=== PATIENT | female | born 1955 | race Caucasian/White ===

== ENCOUNTER → 2019-09-26 | Outpatient (CLI) | payer OTHER ==
[2019-08-14 14:43] VITALS: BP 144/72
[~2019-09-26] MED LIST: ANAS1TAB47 PO; CALC-98 PO; CHOL10003 PO; INSU100V13 SQ; INSU100V31 SQ; LISI-334 PO; OXYC5TAB4 PO; RED600TA PO; TRAM50TA PO; UBID100C26 PO
--- NOTE | 2019-09-26 18:32 | RAD ---
EXAM: PET/CT SCAN INDICATION: History of left breast cancer, restaging. Sternal mass. COMPARISON: None available PET/CT SCAN TECHNIQUE: Approximately 60 minutes after the intravenous administration of 15.1 millicuries of F-18 fluorodeoxyglucose (FDG), PET imaging of the body from the base of the skull through the mid thighs was performed. Reconstruction in all 3 planes were performed. The patient's serum glucose level at the time of the F-18 FDG administration was 162 mg/dL. A noncontrast CT scan was obtained for attenuation correction and anatomic localization purposes only and is not considered a diagnostic CT scan. PQRS compliance Statement One or more of the following individualized dose reduction techniques were utilized for this study: 1. Automated exposure control 2. Adjustment of the mA and/or kV according to patient size 3. Use of iterative reconstruction technique FINDINGS: HEAD AND NECK: No abnormal radiotracer uptake in the head and neck. No lymphadenopathy. Coarse calcification seen in the right thyroid lobe. CHEST: There is soft tissue thickening in the left axilla and subpectoral region with mild increased FDG uptake with SUV max 3.47. No FDG avid lymphadenopathy. Heart is normal in size. There is atelectasis and motion in the lungs. No pleural effusion. ABDOMEN AND PELVIS: No abnormal radiotracer uptake. No lymphadenopathy. Postcholecystectomy. There is a small ventral hernia containing fat and loops of small bowel. MUSCULOSKELETAL: There is increased FDG uptake in the left trapezius and rotator cuff muscles with SUV max up to 3.54. Sclerotic lesion in the left half of the sternum has SUV max 2.71. A 1.6 x 1.2 cm sclerotic lesion in the medial left femoral neck has SUV max 1.8, similar to background. There is a 1.8 cm sclerotic lesion in the right superior pubic ramus, difficult to measure FDG uptake due to artifact from adjacent bladder uptake. There is multilevel degenerative disc disease in the spine. Age-indeterminate L4 compression fracture with mild height loss. IMPRESSION: 1. Soft tissue thickening in the left axilla and subpectoral region with mildly increased FDG uptake, SUV max 3.47. Mild similar increased FDG uptake in the left trapezius and rotator cuff muscles. Findings are likely postsurgical/related to left breast reconstruction. 2. Mild FDG uptake in the sclerotic lesion in the left half of the sternum, SUV max 2.71. 3. There are several sclerotic lesions in the pelvis involving the right superior pubic ramus and left femoral neck. The left femoral neck lesion has no FDG uptake above background. The right superior pubic ramus lesion is indeterminate due to artifact from FDG uptake in the bladder. Electronically signed by: Haley John MD (09/26/2019 6:29 PM) [id number]
== END | disposition home or self-care (01) ==
LOC: PETSC 06:58
PROVIDERS: ATTEND Internal Medicine Hematology & Oncology
DX: C50.112 Malignant neoplasm of central portion of left female breast (principal); M51.36 Other intervertebral disc degeneration, lumbar region
CPT/HCPCS: 78815; A9552

== ENCOUNTER → 2019-10-02 | Outpatient (CLI) | payer OTHER ==
[2019-09-30 13:44] VITALS: BP 146/74
--- NOTE | 2019-10-02 12:46 | RAD ---
Examination: Ultrasound left upper extremity venous duplex HISTORY: History of COPD left upper abdomen pain COMPARISON: None available. TECHNIQUE: Grayscale, color Doppler 2-D, spectral waveform analysis of the left upper extremity venous system were performed FINDINGS: There is nonoccluding echogenicity identified in the proximal and distal brachial vein. There is a superficial vein thrombosis identified in the cephalic vein and mid and proximal basilic vein. The radial, ulnar veins could not be identified. The visualized internal jugular vein, subclavian vein appear patent. The axillary vein is not well-visualized. IMPRESSION: 1. Probable deep venous thrombosis left brachial vein. 2. Superficial vein thrombosis identified in the basilic vein. Ordering physician's office nurse was informed at time of dictation. Electronically signed by: Layo Marie MD (10/02/2019 12:44 PM) [id number]
== END | disposition home or self-care (01) ==
LOC: US 10:16
PROVIDERS: ATTEND Physician Assistant
DX: I82.812 Embolism and thrombosis of superficial veins of left lower extremity (principal); M79.89 Other specified soft tissue disorders; C50.112 Malignant neoplasm of central portion of left female breast
CPT/HCPCS: 93971

== ENCOUNTER → 2019-10-29 | Outpatient (CLI) | payer OTHER ==
[2019-09-30 13:44] VITALS: BP 146/74
[2019-10-29 09:12] LABS: BASO # 0.1 x10^3/uL (0.0-0.2); BASO % 1 % (0-3); EOS # 0.1 x10^3/uL (0.0-0.7); EOS % 1 % (0-3); HEMATOCRIT 30.7 % (36.0-47.0); HEMOGLOBIN 10.8 g/dL (12.0-15.5); LYMPH # 1.3 x10^3/uL (1.0-4.8); LYMPH % 20 % (24-48); MEAN CORPUSCULAR HEMOGLOBIN 33 pg (25-35); MEAN CORPUSCULAR HGB CONC 35 g/dL (31-37); MEAN CORPUSCULAR VOLUME 95 fL (79-100); MONO # 0.7 x10^3/uL (0.0-1.1); MONO % 12 % (0-9); NEUT # 4.2 x10^3/uL (1.8-7.7); NEUT % 66 % (31-73); PLATELET COUNT 368 x10^3/uL (140-400); RED BLOOD COUNT 3.25 x10^6/uL (3.50-5.40); RED CELL DISTRIBUTION WIDTH 19.9 % (11.5-14.5); WHITE BLOOD COUNT 6.4 x10^3/uL (4.0-11.0)
[2019-10-29 09:54] LABS: CALCIUM 9.3 mg/dL (8.5-10.1); CREATININE 1.3 mg/dL (0.6-1.0); GFR 41.2; POTASSIUM 4.1 mmol/L (3.5-5.1)
[2019-10-29 09:59] LABS: ALBUMIN 3.3 g/dL (3.4-5.0); DIRECT BILIRUBIN 0.1 mg/dL (0.0-0.2); TOTAL BILIRUBIN 0.3 mg/dL (0.2-1.0); TOTAL PROTEIN 7.4 g/dL (6.4-8.2)
== END | disposition home or self-care (01) ==
LOC: ONCLAB 08:58
PROVIDERS: ATTEND Internal Medicine Hematology & Oncology
DX: C50.112 Malignant neoplasm of central portion of left female breast (principal)
CPT/HCPCS: 36415; 80048; 80076; 83615; 85025; 86300

== ENCOUNTER → 2019-11-28 | Outpatient (CLI) | payer OTHER ==
[2019-09-30 13:44] VITALS: BP 146/74
--- NOTE | 2019-11-28 15:35 | RAD ---
EXAM: Left upper extremity venous Doppler. HISTORY: Left upper extremity pain/swelling. History of deep venous thrombosis, lymphedema. COMPARISON: 10/02/2019. FINDINGS: Grayscale and Doppler analysis of the left upper extremity deep venous system was performed with graded compression and augmentation. The internal jugular, subclavian, axillary, brachial, basilic, cephalic, radial and ulnar veins were assessed. The previously noted left cephalic vein thrombus has resolved. The left brachial vein is not well seen. It may be atretic, or filled with isoechoic for chronic thrombus. IMPRESSION: 1. The basilic vein is either atretic or filled with chronic isoechoic thrombus. 2. Resolution of the previous noted cephalic vein thrombus. Electronically signed by: Brant Coronado MD (11/28/2019 3:32 PM) [id number]
== END | disposition home or self-care (01) ==
LOC: US 14:09
PROVIDERS: ATTEND Internal Medicine Hematology & Oncology
DX: I82.602 Acute embolism and thrombosis of unspecified veins of left upper extremity (principal); I97.2 Postmastectomy lymphedema syndrome; Z86.718 Personal history of other venous thrombosis and embolism
CPT/HCPCS: 93971

== ENCOUNTER → 2019-12-22 | Outpatient (CLI) | payer OTHER ==
[2019-09-30 13:44] VITALS: BP 146/74
[~2019-12-22] MED LIST changes: +IOHEXOL 240 MG/ML 50ML VIAL. PO ONE
--- NOTE | 2019-12-22 12:53 | RAD ---
EXAM: CT OF THE CHEST, ABDOMEN AND PELVIS WITHOUT CONTRAST. HISTORY: Metastatic breast cancer. TECHNIQUE: Computed tomography of the chest, abdomen and pelvis was performed without intravenous contrast. One or more of the following individualized dose reduction techniques were utilized for this examination: 1. Automated exposure control. 2. Adjustment of the mA and/or kV according to patient size. 3. Use of iterative reconstruction technique. COMPARISON: 09/26/2019. FINDINGS: Bone windows reveal multiple small sclerotic lesions consistent with metastatic disease. The largest is within the left aspect of the sternal body. One in the left femoral neck measures 2.6 x 1.3 cm. Small lesions are seen within multiple bilateral ribs, multiple thoracic and lumbar vertebral bodies, and scattered throughout the pelvis. There is a mild central superior plate compression fracture at L4, not clearly associated with the lesion. The degree of sclerosis of most lesions appears to have increased since the prior study. Infiltrative soft tissue density is again noted between the left pectoralis major and minor muscles, extending about the left brachial plexus and left axillary dissection clips. There is subcutaneous edema within the visualized portions of the left upper extremity. Bilateral mastectomy changes are noted. There are no pathologically enlarged mediastinal or discrete axillary lymph nodes. There is a small left pleural effusion. No clear pleural masses are identified. The heart is not enlarged. Scarring anteriorly in the left upper lobe is likely secondary to postradiation change. A nodule with adjacent scarring in the right middle lobe measures 8 mm and is not clearly changed. Diffuse hepatic steatosis is moderate to severe. Sensitivity for hepatic lesions is decreased without contrast. The gallbladder is surgically absent. A 12 mm nodule in the left adrenal gland is unchanged. The right adrenal gland is stable. The pancreas, spleen and right kidney are unremarkable. A 4 mm calculus is noted in the left renal lower pole. The uterus is surgically absent. The appendix is not inflamed. There is no small bowel obstruction. A moderate supraumbilical hernia contains a nonobstructed small bowel loop. IMPRESSION: 1. Sclerotic osseous lesions throughout the visualized skeleton have increased since 09/24/2019. This may reflect progression of disease or increased sclerosis in the setting of a healing response. Correlate with other clinical data. 2. Stable infiltrative soft tissue within the left axilla and pectoral region may reflect posttreatment fibrosis or residual/recurrent disease. 3. Small left pleural effusion. 4. Stable 8 mm right middle lobe nodule. 5. Moderate to severe diffuse hepatic steatosis. 6. Moderate supraumbilical hernia containing nonobstructed small bowel loops. 7. 4 mm left renal calculus. Electronically signed by: Brant Coronado MD (12/22/2019 12:50 PM) [id number]
--- NOTE | 2019-12-22 13:52 | RAD ---
EXAM: BONE SCINTIGRAPHY. HISTORY: Metastatic breast cancer. TECHNIQUE: Following the intravenous injection of 25 mCi of Tc-99m labeled methylene diphosphonate (MDP), delayed images of the whole body were performed in anterior and posterior projections. COMPARISON: CT 12/22/2019. FINDINGS: A focus of increased uptake along the the left para midline frontal bone is consistent with a metastasis. Additional foci are seen along the ribs bilaterally. The largest focus is noted along the sternal body. Additional small lesions are seen within the pelvis bilaterally, the lower thoracic spine, the left intertrochanteric femur, and the right mid femoral diaphysis. Multiple small lesions within the ribs, spine and pelvis noted on CT are not well seen sonographically. Artifact suggesting radiotracer infiltration are noted in the right wrist and forearm. IMPRESSION: 1. Osseous metastatic disease within the axial and appendicular skeleton as above. Electronically signed by: Brant Coronado MD (12/22/2019 1:49 PM) [id number]
== END | disposition home or self-care (01) ==
LOC: NM 10:25
PROVIDERS: ATTEND Internal Medicine Hematology & Oncology
DX: C50.112 Malignant neoplasm of central portion of left female breast (principal); C79.51 Secondary malignant neoplasm of bone; R91.1 Solitary pulmonary nodule; J90 Pleural effusion, not elsewhere classified; Z90.710 Acquired absence of both cervix and uterus; N20.0 Calculus of kidney; K42.9 Umbilical hernia without obstruction or gangrene; K76.0 Fatty (change of) liver, not elsewhere classified
CPT/HCPCS: 71250; 74176; 78306; A9503; Q9966

== ENCOUNTER → 2020-01-23 | Outpatient (CLI) | payer OTHER ==
[2019-09-30 13:44] VITALS: BP 146/74
[~2020-01-23] MED LIST changes: -IOHEXOL 240 MG/ML 50ML VIAL. PO ONE
[2020-01-23 09:09] LABS: BASO % 1 % (0-3); EOS # 0.1 x10^3/uL (0.0-0.7); EOS % 2 % (0-3); HEMATOCRIT 34.8 % (36.0-47.0); HEMOGLOBIN 12.1 g/dL (12.0-15.5); LYMPH # 1.1 x10^3/uL (1.0-4.8); LYMPH % 27 % (24-48); MEAN CORPUSCULAR HEMOGLOBIN 35 pg (25-35); MEAN CORPUSCULAR HGB CONC 35 g/dL (31-37); MEAN CORPUSCULAR VOLUME 99 fL (79-100); MONO # 0.4 x10^3/uL (0.0-1.1); MONO % 11 % (0-9); NEUT # 2.4 x10^3/uL (1.8-7.7); NEUT % 60 % (31-73); PLATELET COUNT 224 x10^3/uL (140-400); RED BLOOD COUNT 3.52 x10^6/uL (3.50-5.40); RED CELL DISTRIBUTION WIDTH 13.2 % (11.5-14.5); WHITE BLOOD COUNT 4.1 x10^3/uL (4.0-11.0)
[2020-01-23 09:16] LABS: CALCIUM 9.6 mg/dL (8.5-10.1); CREATININE 1.1 mg/dL (0.6-1.0); POTASSIUM 4.3 mmol/L (3.5-5.1)
[2020-01-23 09:33] LABS: ALBUMIN 3.2 g/dL (3.4-5.0); ALBUMIN/GLOBULIN RATIO 0.8 (1.0-1.7); TOTAL BILIRUBIN 0.3 mg/dL (0.2-1.0); TOTAL PROTEIN 7.4 g/dL (6.4-8.2)
== END | disposition home or self-care (01) ==
LOC: ONCLAB 08:48
PROVIDERS: ATTEND Internal Medicine Hematology & Oncology
DX: C50.112 Malignant neoplasm of central portion of left female breast (principal); C79.51 Secondary malignant neoplasm of bone
CPT/HCPCS: 36415; 80053; 82728; 83540; 83550; 85025

== ENCOUNTER → 2020-05-18 | Outpatient (CLI) | payer OTHER ==
[2019-09-30 13:44] VITALS: BP 146/74
[~2020-05-18] MED LIST changes: -LISI-334 PO; +LISI20TA18 PO
[2020-05-18 10:46] LABS: BASO % 0 % (0-3); EOS # 0.1 x10^3/uL (0.0-0.7); EOS % 1 % (0-3); HEMOGLOBIN 11.5 g/dL (12.0-15.5); LYMPH # 0.8 x10^3/uL (1.0-4.8); LYMPH % 11 % (24-48); MEAN CORPUSCULAR HEMOGLOBIN 32 pg (25-35); MEAN CORPUSCULAR HGB CONC 34 g/dL (31-37); MEAN CORPUSCULAR VOLUME 95 fL (79-100); MONO # 0.6 x10^3/uL (0.0-1.1); MONO % 8 % (0-9); NEUT # 5.8 x10^3/uL (1.8-7.7); NEUT % 79 % (31-73); PLATELET COUNT 361 x10^3/uL (140-400); RED BLOOD COUNT 3.58 x10^6/uL (3.50-5.40); WHITE BLOOD COUNT 7.4 x10^3/uL (4.0-11.0)
[2020-05-18 11:16] LABS: CALCIUM 9.2 mg/dL (8.5-10.1); CREATININE 1.8 mg/dL (0.6-1.0); GFR 28.2; POTASSIUM 4.4 mmol/L (3.5-5.1)
[2020-05-18 11:20] LABS: ALBUMIN 2.7 g/dL (3.4-5.0); ALBUMIN/GLOBULIN RATIO 0.7 (1.0-1.7); TOTAL BILIRUBIN 0.2 mg/dL (0.2-1.0); TOTAL PROTEIN 6.8 g/dL (6.4-8.2)
== END ==
LOC: ONCLAB 09:59
PROVIDERS: ATTEND Internal Medicine Hematology & Oncology
DX: C50.112 Malignant neoplasm of central portion of left female breast (principal)
CPT/HCPCS: 36415; 80053; 85025

== ENCOUNTER → 2020-05-20 | Outpatient (CLI) | payer MEDICARE, OTHER ==
[2019-09-30 13:44] VITALS: BP 146/74
[~2020-05-20] MED LIST changes: +LISI-334 PO; -LISI20TA18 PO
--- NOTE | 2020-05-20 16:36 | RAD ---
Nuclear medicine whole body bone scan History: Reason: RESTAGING BONE CA / Comparison: Whole-body bone scan and CT chest abdomen and pelvis without contrast, December 22, 2019. Technique: Examination performed after intravenous administration of 25 mCi Technetium 99m MDP. Imag es of the whole body were obtained in the anterior and posterior projections. Findings: Overall bone scan findings are worse. There are new or newly seen lesions in the proximal and mid fem urs bilaterally. There is new tracer uptake on the right superior to the right acetabulum. Tracer upt michelle of the sacrum has increased from prior study. Tracer uptake in the midline is more apparent. Ther e are new or more intense foci of tracer uptake in the thoracolumbar spine. Bilateral rib lesions dem onstrate greater tracer uptake. Intense tracer uptake in the sternum is mildly improved. Tracer uptak e of the calvarium has increased in size and intensity and there is a new focus of tracer uptake on t he left. There are 2 new foci of tracer uptake in the proximal left humerus. There is increased trace r uptake in the upper sternum. Tracer distribution in the soft tissues appears physiologic. IMPRESSION: Moderate interval worsening of osteoblastic metastases. Electronically signed by: Will Almodovar MD (05/20/2020 4:33 PM) [id number]
== END ==
LOC: NM 10:05
PROVIDERS: ATTEND Internal Medicine Hematology & Oncology
DX: C79.51 Secondary malignant neoplasm of bone (principal)
CPT/HCPCS: 78306; A9503

== ENCOUNTER → 2020-06-01 | Outpatient (CLI) | payer MEDICARE, OTHER ==
[2019-09-30 13:44] VITALS: BP 146/74
[~2020-06-01] MED LIST changes: -LISI-334 PO; +LISI20TA18 PO
--- NOTE | 2020-06-01 17:34 | RAD ---
EXAM: CHEST 2 VIEWS. HISTORY: Malignant pleural effusion. COMPARISON: None. FINDINGS: Frontal and lateral views of the chest are obtained. There is a small left pleural effusion with left basilar atelectasis. Changes of left axillary lymph node dissection are noted. There is no pneumothorax or pleural effusion. The heart is not enlarged. C ontrast is noted in the colon from a prior procedure. IMPRESSION: 1. Small left pleural effusion with left basilar atelectasis. Electronically signed by: Brant Coronado MD (06/01/2020 5:32 PM) [id number]
== END ==
LOC: RAD 09:04
PROVIDERS: ATTEND Internal Medicine Hematology & Oncology
DX: J91.0 Malignant pleural effusion (principal); J98.11 Atelectasis
CPT/HCPCS: 71046

== ENCOUNTER → 2020-06-01 | Outpatient (CLI) | payer MEDICARE, OTHER ==
[2019-09-30 13:44] VITALS: BP 146/74
[2020-06-01 10:45] LABS: BASO % 1 % (0-3); EOS # 0.1 x10^3/uL (0.0-0.7); EOS % 1 % (0-3); HEMATOCRIT 34.5 % (36.0-47.0); HEMOGLOBIN 11.4 g/dL (12.0-15.5); LYMPH # 0.7 x10^3/uL (1.0-4.8); LYMPH % 10 % (24-48); MEAN CORPUSCULAR HEMOGLOBIN 31 pg (25-35); MEAN CORPUSCULAR HGB CONC 33 g/dL (31-37); MEAN CORPUSCULAR VOLUME 95 fL (79-100); MONO # 0.7 x10^3/uL (0.0-1.1); MONO % 10 % (0-9); NEUT # 5.4 x10^3/uL (1.8-7.7); NEUT % 79 % (31-73); PLATELET COUNT 391 x10^3/uL (140-400); RED BLOOD COUNT 3.64 x10^6/uL (3.50-5.40); RED CELL DISTRIBUTION WIDTH 13.6 % (11.5-14.5); WHITE BLOOD COUNT 6.8 x10^3/uL (4.0-11.0)
[2020-06-01 11:01] LABS: CREATININE 1.6 mg/dL (0.6-1.0); GFR 32.3; POTASSIUM 4.3 mmol/L (3.5-5.1)
[2020-06-01 11:08] LABS: ALBUMIN 2.8 g/dL (3.4-5.0); ALBUMIN/GLOBULIN RATIO 0.7 (1.0-1.7); TOTAL BILIRUBIN 0.4 mg/dL (0.2-1.0)
== END ==
LOC: ONCLAB 10:03
PROVIDERS: ATTEND Internal Medicine Hematology & Oncology
DX: C50.112 Malignant neoplasm of central portion of left female breast (principal)
CPT/HCPCS: 36415; 71046; 80053; 85025

== ENCOUNTER → 2020-06-29 | Outpatient (CLI) | payer MEDICARE, OTHER ==
[2019-09-30 13:44] VITALS: BP 146/74
[2020-06-29 15:32] LABS: CALCIUM 8.4 mg/dL (8.5-10.1); POTASSIUM 5.3 mmol/L (3.5-5.1)
[2020-06-29 15:38] LABS: ALBUMIN 2.8 g/dL (3.4-5.0); ALBUMIN/GLOBULIN RATIO 0.6 (1.0-1.7); TOTAL BILIRUBIN 0.2 mg/dL (0.2-1.0); TOTAL PROTEIN 7.2 g/dL (6.4-8.2)
[2020-06-29 15:52] LABS: BASO % 1 % (0-3); EOS # 0.1 x10^3/uL (0.0-0.7); EOS % 2 % (0-3); HEMATOCRIT 35.3 % (36.0-47.0); HEMOGLOBIN 12.1 g/dL (12.0-15.5); LYMPH # 0.7 x10^3/uL (1.0-4.8); LYMPH % 20 % (24-48); MEAN CORPUSCULAR HEMOGLOBIN 31 pg (25-35); MEAN CORPUSCULAR HGB CONC 34 g/dL (31-37); MEAN CORPUSCULAR VOLUME 92 fL (79-100); MONO # 0.5 x10^3/uL (0.0-1.1); MONO % 14 % (0-9); NEUT # 2.2 x10^3/uL (1.8-7.7); NEUT % 63 % (31-73); PLATELET COUNT 251 x10^3/uL (140-400); RED BLOOD COUNT 3.85 x10^6/uL (3.50-5.40); RED CELL DISTRIBUTION WIDTH 14.1 % (11.5-14.5); WHITE BLOOD COUNT 3.5 x10^3/uL (4.0-11.0)
[2020-06-29 16:42] LABS: BILIRUBIN,URINE NEGATIVE (NEG); CLARITY,URINE CLEAR; COLOR,URINE YELLOW; NITRITE,URINE NEGATIVE (NEG); PROTEIN,URINE 100 mg/dL (NEG-TRACE); UROBILINOGEN,URINE 0.2 mg/dL (0.2 mg/dL)
[2020-06-29 16:53] LABS: BACTERIA,URINE MANY /HPF (0-FEW); RBC,URINE 0 /HPF (0-2)
== END ==
LOC: ONCLAB 13:53
PROVIDERS: ATTEND Physician Assistant
DX: C50.112 Malignant neoplasm of central portion of left female breast (principal); R30.0 Dysuria
CPT/HCPCS: 36415; 80053; 81001; 85025; 86300; 87086

== ENCOUNTER → 2020-07-08 | Outpatient (CLI) | payer MEDICARE, OTHER ==
[2019-09-30 13:44] VITALS: BP 146/74
[2020-07-08 15:48] LABS: BASO % 0 % (0-3); EOS % 0 % (0-3); HEMOGLOBIN 11.9 g/dL (12.0-15.5); LYMPH # 0.3 x10^3/uL (1.0-4.8); LYMPH % 5 % (24-48); MEAN CORPUSCULAR HEMOGLOBIN 31 pg (25-35); MEAN CORPUSCULAR HGB CONC 34 g/dL (31-37); MEAN CORPUSCULAR VOLUME 91 fL (79-100); MONO # 0.2 x10^3/uL (0.0-1.1); MONO % 4 % (0-9); NEUT # 5.8 x10^3/uL (1.8-7.7); NEUT % 91 % (31-73); PLATELET COUNT 460 x10^3/uL (140-400); RED BLOOD COUNT 3.83 x10^6/uL (3.50-5.40); RED CELL DISTRIBUTION WIDTH 14.3 % (11.5-14.5); WHITE BLOOD COUNT 6.4 x10^3/uL (4.0-11.0)
[2020-07-08 16:00] LABS: CALCIUM 8.7 mg/dL (8.5-10.1); POTASSIUM 4.8 mmol/L (3.5-5.1)
[2020-07-08 16:07] LABS: ALBUMIN 3.4 g/dL (3.4-5.0); ALBUMIN/GLOBULIN RATIO 0.8 (1.0-1.7); TOTAL BILIRUBIN 0.3 mg/dL (0.2-1.0); TOTAL PROTEIN 7.6 g/dL (6.4-8.2)
[2020-07-08 18:18] LABS: % LYMPHS 5 % (24-48); % MONOS 4 % (0-10); % SEGS 91 % (35-66)
[2020-07-08 18:19] LABS: PLT ESTIMATE INCREASED (ADEQUATE)
== END ==
LOC: ONCLAB 15:20
PROVIDERS: ATTEND Physician Assistant
DX: C50.112 Malignant neoplasm of central portion of left female breast (principal); C79.51 Secondary malignant neoplasm of bone; I82.602 Acute embolism and thrombosis of unspecified veins of left upper extremity
CPT/HCPCS: 36415; 80053; 83615; 85007; 85025

== ENCOUNTER → 2020-08-04 | Outpatient (CLI) | payer MEDICARE, OTHER ==
[2019-09-30 13:44] VITALS: BP 146/74
[2020-08-04 11:59] LABS: BASO % 0 % (0-3); EOS % 0 % (0-3); HEMATOCRIT 31.9 % (36.0-47.0); HEMOGLOBIN 10.4 g/dL (12.0-15.5); LYMPH # 0.5 x10^3/uL (1.0-4.8); LYMPH % 2 % (24-48); MEAN CORPUSCULAR HEMOGLOBIN 31 pg (25-35); MEAN CORPUSCULAR HGB CONC 33 g/dL (31-37); MEAN CORPUSCULAR VOLUME 94 fL (79-100); MONO # 1.7 x10^3/uL (0.0-1.1); MONO % 9 % (0-9); NEUT # 16.5 x10^3/uL (1.8-7.7); NEUT % 88 % (31-73); PLATELET COUNT 440 x10^3/uL (140-400); RED BLOOD COUNT 3.41 x10^6/uL (3.50-5.40); RED CELL DISTRIBUTION WIDTH 15.7 % (11.5-14.5); WHITE BLOOD COUNT 18.7 x10^3/uL (4.0-11.0)
[2020-08-04 12:01] LABS: ALBUMIN/GLOBULIN RATIO 0.4 (1.0-1.7); CALCIUM 8.6 mg/dL (8.5-10.1); CREATININE 1.5 mg/dL (0.6-1.0); GFR 34.9; TOTAL BILIRUBIN 0.4 mg/dL (0.2-1.0); TOTAL PROTEIN 6.6 g/dL (6.4-8.2)
[2020-08-04 12:02] LABS: POTASSIUM 6.3 mmol/L (3.5-5.1)
[2020-08-04 12:38] LABS: % BANDS 1 % (0-9); % LYMPHS 2 % (24-48); % MONOS 12 % (0-10); % MYELOS 3 % (0-0); % SEGS 82 % (35-66); PLT ESTIMATE INCREASED (ADEQUATE)
== END ==
LOC: SPEC 11:30
PROVIDERS: ATTEND Internal Medicine Hematology & Oncology
DX: C71.9 Malignant neoplasm of brain, unspecified (principal); J91.0 Malignant pleural effusion
CPT/HCPCS: 36415; 80053; 85007; 85025